=== PATIENT | female | born 1975 | race Caucasian/White ===

== ENCOUNTER → 2020-07-15 | Outpatient (CLI) | payer OTHER | LOC: KOH-I 07-13 16:00 → CT 07-23 11:30 | DX: M79.604 Pain in right leg (principal) | CPT/HCPCS: 70450; 93971 ==

== ENCOUNTER → 2020-07-23 | Outpatient (CLI) | payer OTHER | LOC: RAD 10:53 | DX: M25.571 Pain in right ankle and joints of right foot (principal); R60.0 Localized edema | CPT/HCPCS: 73610; 73630 ==

== ENCOUNTER → 2020-11-20 | Outpatient (CLI) | payer OTHER | LOC: KOH-I 08:30 | DX: M54.5 Low back pain (principal) | CPT/HCPCS: 72192 ==